=== PATIENT | male | born 1990 | race Two or more races ===

== ENCOUNTER 2024-03-02 15:29 | Emergency (ER) | payer OTHER ==
[~2024-03-02] VITALS: Ht 162.6 cm; Wt 77.1 kg
[2024-03-02 15:58] VITALS: BP 118/87; O2SAT 98
[2024-03-02] MEDS ORDERED: IPRATROPIUM/ALBUTEROL SULFATE 3 ML AMPUL.NEB IH ONE ×2 (20:15→21:29)
[2024-03-02] MEDS ORDERED: GUAIFENESIN/DEXTROMETHORPHAN 10ML BLIST.PACK PO ONE ×2 (20:15→20:33)
[2024-03-02 21:04] LABS: HEMATOCRIT 39.2 % (39.0-48.0); HEMOGLOBIN 13.8 g/dL (13-16.00); MEAN CELL VOLUME 87.3 fL (80.0-100.00); MEAN CORPUSCULAR HEMOGLOBIN 30.7 pg (27.00-32.0); MEAN CORPUSCULAR HGB CONC 35.1 g/dl (32.0-36.0); PLATELET COUNT 165 K/uL (150-450); RED BLOOD COUNT 4.49 M/uL (4.00-6.00); RED CELL DISTRIBUTION WIDTH 12.4 % (11.5-14.5)
[2024-03-02] MEDS ORDERED: OSELTAMIVIR PHOSPHATE 75 MG CAPSULE PO ONE ×2 (21:45→21:54)
[2024-03-02] MEDS ORDERED: TUSSIN DM LIQU118 ML PO (21:48)
[2024-03-02] MEDS ORDERED: BENZONATATE150 MG PO (21:48)
[2024-03-02] MEDS ORDERED: SINGULAIR10 MG PO (21:48)
[2024-03-02] MEDS ORDERED: OSEL75CA PO (21:48)
[2024-03-02] MEDS ORDERED: IPRATROPIU0.2 MG/1 M IH (21:48)
[2024-03-02] MEDS ORDERED: ALBUTEROL1.25 MG/3 IH (21:48)
== END 2024-03-02 21:58 ==
LOC: ER 15:31
PROVIDERS: Preventive Medicine Public Health & General Preventive Medicine
DX: J10.1 Influenza due to other identified influenza virus with other respiratory manifestations (principal); Z20.822 Contact with and (suspected) exposure to COVID-19; Z87.09 Personal history of other diseases of the respiratory system